=== PATIENT | female | born 1945 | race Caucasian/White ===

== ENCOUNTER 2018-03-11 23:43 | Inpatient (IN) | END 2018-03-13 16:59 | disposition home or self-care (01) | DRG 512 ==

== ENCOUNTER 2018-09-14 17:51 | Observation (INO) | payer OTHER ==
[~2018-09-14] VITALS: Ht 152.4 cm; Wt 49.0 kg
[~2018-09-14 17:51] MED LIST: HYDR-3601 PO
[2018-09-14] MEDS ORDERED: SOD CHLORIDE 0.9% 1,000 ML IV STA (19:25)
[2018-09-15] VITALS (8 sets, daily range): BP systolic 120–165; BP diastolic 72–87; PULSE 81–95; RESP 16; Ht 152.4 cm; Wt 49.0 kg
--- NOTE | 2018-09-15 02:22 | ERD ---
ER Documentation Chief Complaint Chief Complaint pt is bib friend with c/o shaking and "seeing things that aren't there" " HPI Is a 73-year-old female brought in by her friend with complaints of tremulousness and double vision that started approximately 16-18 hours ago upon waking. Apparently she had one episode of this last year but did not seek medical attention. Since arrival, her double vision is completely normalized however she maintains her tremulousness and generalized ataxia. She is unable to walk more than 2 steps without stumbling. She denied any dysarthria, slurred speech, difficulty word finding, loss of motor strength ROS All systems reviewed and are negative except as per history of present illness. Medications Home Meds Active Scripts Hydrocodone Bit-Acetaminophen (Hydrocodone Bit-APAP) 5-325MG Tablet, 2 TAB PO Q6H PRN for PAIN, #60 TAB Prov:Fatoumata HAREMarthaNATE Cici 03/13/18 Allergies Allergies: Coded Allergies: No Known Allergy (Unverified , 11/05/15) PMhx/Soc History of Surgery: Yes (LEFT ELBOW ) Anesthesia Reaction: No Hx Neurological Disorder: No Hx Respiratory Disorders: No Hx Cardiac Disorders: Yes (HYPERLIPIDEMIA ) Hx Psychiatric Problems: No Hx Miscellaneous Medical Probl: No Hx Alcohol Use: Yes (DAILY ) Hx Substance Use: No Hx Tobacco Use: No Smoking Status: Never smoker Physical Exam Vitals Vital Signs Date Temp Pulse Resp B/P (MAP) Pulse Ox O2 O2 Flow FiO2 Time Delivery Rate 09/15/18 78 16 153/74 95 Room Air 01:29 (100) 09/14/18 86 16 152/91 95 Room Air 23:01 (111) 09/14/18 84 16 159/92 95 Room Air 22:15 (114) 09/14/18 98.1 91 16 171/91 96 Room Air 20:24 (117) 09/14/18 98.9 72 18 186/97 98 17:57 (126) Physical Exam Const: No acute distress Head: Atraumatic Eyes: Normal Conjunctiva ENT: Normal External Ears, Nose and Mouth. Neck: Full range of motion. No meningismus. Resp: Clear to auscultation bilaterally Cardio: Regular rate and rhythm, no murmurs Abd: Soft, non tender, non distended. Normal bowel sounds Skin: No petechiae or rashes Back: No midline or flank tenderness Ext: No cyanosis, or edema Neur: Awake and alert Psych: Normal Mood and Affect Result Diagram: 09/14/18200909/14/182010 Results 24 hrs Laboratory Tests Test 09/14/18 20:10 09/14/18 20:11 09/14/18 20:18 09/15/18 00:35 White Blood Count 5.5 10^3/ul Red Blood Count 4.22 10^6/ul Hemoglobin 13.5 g/dl Hematocrit 39.4 % Mean Corpuscular 93.4 fl Volume Mean Corpuscular 32.0 pg Hemoglobin Mean Corpuscular 34.3 g/dl Hemoglobin Concent Red Cell 12.3 % Distribution Width Platelet Count 297 10^3/UL Mean Platelet 8.3 fl Volume Immature 0.400 % Granulocytes % Neutrophils % 69.4 % Lymphocytes % 20.0 % Monocytes % 9.2 % Eosinophils % 0.4 % Basophils % 0.6 % Nucleated Red 0.0 /100WBC Blood Cells % Immature 0.020 10^3/ul Granulocytes # Neutrophils # 3.8 10^3/ul Lymphocytes # 1.1 10^3/ul Monocytes # 0.5 10^3/ul Eosinophils # 0.0 10^3/ul Basophils # 0.0 10^3/ul Nucleated Red 0.0 10^3/ul Blood Cells # Prothrombin Time 11.8 Sec Prothrombin Time 0.9 Ratio INR International 0.86 Normalized Ratio Activated 24.[address] Time Sodium Level 140 mmol/L Potassium Level 3.9 mmol/L Chloride Level 95 mmol/L Carbon Dioxide 26 mmol/L Level Anion Gap 19 Blood Urea 17 mg/dl Nitrogen Creatinine 0.71 mg/dl Est Glomerular mL/min Filtrat Rate mL/min Glucose Level 104 mg/dl Calcium Level 10.1 mg/dl Total Bilirubin 0.4 mg/dl Direct Bilirubin 0.00 mg/dl Indirect Bilirubin 0.4 mg/dl Aspartate Amino 24 IU/L Transf (AST/SGOT) Alanine 27 IU/L Aminotransferase ( ALT/SGPT) Alkaline 82 IU/L Phosphatase Creatine Kinase 29 IU/L Creatine Kinase 1.0 Index Creatinine Kinase 0.28 ng/ml MB (Mass) Troponin I < 0.012 ng/ml Total Protein 7.9 g/dl Albumin 5.0 g/dl Globulin 2.90 g/dl Albumin/Globulin 1.72 Ratio POC Venous Lactate 1.2 mmol/L Lactic Acid Level 0.9 mmol/L Current Medications Medications Dose Sig/Donn Start Time Status Last (Trade) Ordered Route PRN Stop Time Admin Dose Reason Admin Sodium 1,000 ml @ Q1H STAT 09/14/18 DC 09/14/18 Chloride 1,000 mls/hr IV 19:25 20:23 09/14/18 20:24 IV Flush 3 ml PER 09/15/18 (NS 3 ml) PROTOCOL IV 02:30 Ondansetron 4 mg Q6H PRN 09/15/18 HCl (Zofran IV 02:30 Inj) NAUSEA/VOMITI NG Aspirin 81 mg DAILY PO 09/15/18 (Aspirin) 09:00 650 mg Q6H PRN 09/15/18 Acetaminophen PO .PAIN 1-3 02:30 (Tylenol OR TEMP Tab) 1 tab Q6H PRN 09/15/18 Acetaminophen PO .PAIN 4-6 02:30 / Hydrocodone Bitart ([place] (5/325)) 2 tab Q6H PRN 09/15/18 Acetaminophen PO .PAIN 02:30 / 7-10 Hydrocodone Bitart ([place] (5/325)) Docusate 100 mg Q12H PRN 09/15/18 Sodium PO 02:30 (Colace) .CONSTIPATION Magnesium 30 ml DAILY PRN 09/15/18 Hydroxide PO 02:30 (Milk Of Mag) .CONSTIPATION Bisacodyl 10 mg DAILY PRN 09/15/18 (Dulcolax CA 02:30 Supp) .CONSTIPATION Famotidine 20 mg Q12 PO 09/15/18 (Pepcid) 09:00 Amlodipine 5 mg DAILY PO 09/15/18 Besylate 09:00 (Norvasc) Hydralazine 10 mg Q8H PRN 09/15/18 HCl IV ELEVATED 02:30 (Apresoline) BLOOD PRESSURE Procedures/MDM EKG: Rate/Rhythm: [Normal Sinus Rhythm] QRS, ST, T-waves: [No changes consistent w/ acute ischemia] Impression: [No evidence of ischemia or arrhythmia] Chest X-ray 1V Interpreted by me: Soft Tissue: No acute abnormalities Bones: No acute abnormalities Mediastinum/Cardiac Silhouette/Lungs: [No acute abnormalities] Medical decision making: This very pleasant patient comes in with generalized ataxia. Her physical exam shows no neurological findings other than the tremulousness in her hands. She has normal cerebellar function on heel to toe and finger to nose testing. She has no dysarthria or slurred speech or facial drooping. She is alert and oriented x4. I do feel the patient is to be admitted for further evaluation and management. I spoken to , who is on-call who agrees with my assessment is calyx of the patient to her service. Departure Diagnosis: Primary Impression: Blurring of visual image Condition: Serious DONALDO JOHNSON Sep 15, 2018 02:22
[2018-09-15] MEDS ORDERED: DOCUSATE SODIUM 100 MG CAP PO PRN (02:30)
[2018-09-15] MEDS ORDERED: BISACODYL 10 MG SUPP PR PRN (02:30)
[2018-09-15] MEDS ORDERED: MAGNESIUM HYDROXIDE 30ML CUP PO PRN (02:30)
[2018-09-15] MEDS ORDERED: HYDROCODONE/APAP (5/325) TAB PO PRN ×2 (02:30)
[2018-09-15] MEDS ORDERED: hydrALAzine 20 MG INJ IV PRN (02:30)
[2018-09-15] MEDS ORDERED: NACL 0.9% 3 ML SYG IV SCH (02:30)
[2018-09-15] MEDS ORDERED: ACETAMINOPHEN 325 MG TAB PO PRN (02:30)
[2018-09-15] MEDS ORDERED: ONDANSETRON 4 MG INJ IV PRN (02:30)
[2018-09-15] MEDS ORDERED: ASPIRIN 81 MG TAB PO SCH (09:00)
[2018-09-15] MEDS ORDERED: FAMOTIDINE 20 MG TAB PO SCH (09:00)
[2018-09-15] MEDS ORDERED: AMLODIPINE 5 MG TAB PO SCH (09:00)
[2018-09-15] MEDS ORDERED: ASPI-831 PO (09:05)
[2018-09-15] MEDS ORDERED: AMLO-145 PO (09:05)
--- NOTE | 2018-09-15 09:06 | PDOCDIS ---
Discharge Instructions CONDITION [id number] Patient Condition: [id number] Good HOME CARE INSTRUCTIONS: [id number] Diet Instructions: [id number] y FOLLOW UP/APPOINTMENTS Follow-up Plan pcp 1 week ROSA MAN MD Sep 15, 2018 09:06
--- NOTE | 2018-09-15 10:22 | HP ---
DATE OF ADMISSION: 09/15/2018 CHIEF COMPLAINT: Double vision and unsteady gait. HISTORY OF PRESENT ILLNESS: A 73-year-old female with unremarkable past medical history, presented t o Emergency Room with complaint of double vision all day, as well as tremulousness. The symptoms [place] throughout the day. By the time she arrived to the Emergency Room her double vision was complete ly resolved. However, she remained somewhat unsteady with generalized ataxia. The patient denies an y focal weakness or numbness. No dysarthria or aphasia. No further visual changes. She reports fee ling better since admission. Patient was able to ambulate in the morning of admission. She denies a ny symptoms of vertigo. The patient was noted to be hypertensive and started on Norvasc. PAST MEDICAL HISTORY: Unremarkable. MEDICATIONS PRIOR TO ADMISSION: Edwards as needed. SOCIAL HISTORY: The patient denies tobacco or alcohol use. PHYSICAL EXAMINATION: GENERAL: Well-developed, well-nourished elderly female who is in no apparent distress. VITAL SIGNS: Stable. She is afebrile. HEENT: Extraocular muscles intact. Pupils equal and reactive to light bilaterally. Sclerae are ani cteric. Oropharynx is clear and moist. NECK: Supple, no JVD, no carotid bruits. LUNGS: Clear to auscultation bilaterally. CARDIAC: Regular rate and rhythm. No murmurs or gallops. ABDOMEN: Soft, nontender, nondistended, normoactive bowel sounds. EXTREMITIES: No clubbing, cyanosis, or edema. NEUROLOGICAL: Cranial nerves II through XII are intact. Motor and sensory are intact in all extremi ties. The patient has mild noticeable tremor. LABORATORY DATA: Normal. CAT scan of the brain was unremarkable. ASSESSMENT: 1. A 73-year-old female presenting with transient diplopia and ataxia. The symptoms have resolved s benny admission. 2. Newly diagnosed hypertension, started on Norvasc. PLAN: Place in tele observation, proceed with MRI of brain. DISCHARGE PLANNING: If MRI is unremarkable: 1. Consider baby aspirin in case symptoms re-present. 2. Transient ischemic attack. 3. Continue Norvasc. Dictated By: ROSA STRONG/QUETA Conf#: [id number] DID#: [id number] CC: EMIGDIO HARE MD;*End*
== END 2018-09-15 16:45 | disposition home or self-care (01) ==
LOC: E/R 17:51 → 6WM 09-15 01:12
PROVIDERS: ADMIT Internal Medicine; ATTEND Internal Medicine
DX: H53.2 Diplopia (principal); R27.0 Ataxia, unspecified; E78.5 Hyperlipidemia, unspecified; I10 Essential (primary) hypertension
CPT/HCPCS: 70450; 70551; 71045; 80048; 80053; 80061; 82550; 82553; 83036; 83605; 83735; 84484; 85025; 85610; 85730; 87400; 93005; 93880; 97161; 99285; G0378; J0360; J7030

== ENCOUNTER 2018-11-05 13:19 | Emergency (ER) | payer OTHER ==
[~2018-11-05] VITALS: Ht 152.4 cm; Wt 48.3 kg
[~2018-11-05 13:19] MED LIST changes: +AMLO-145 PO; +ASPI-831 PO
[2018-11-05 13:25] VITALS: BP 127/73; PULSE 81; RESP 19; Ht 152.4 cm; Wt 48.3 kg
[2018-11-05] MEDS ORDERED: IBUPROFEN 200 MG TAB PO ONE (14:30)
[2018-11-05] MEDS ORDERED: TRAM50TA2 PO (15:57)
--- NOTE | 2018-11-05 16:04 | ERD ---
ER Documentation Chief Complaint Chief Complaint left hand pain/injury due to fall HPI 73-year-old female presents with left hand pain and deformity after falling and tripping today. She denies any headache, head injury, neck pain, weakness, deficits. Denies any chest pain or shortness of breath. She has bruising and deformity of her left second through fifth digit ROS All systems reviewed and are negative except as per history of present illness. Medications Home Meds Active Scripts Tramadol HCl (Tramadol HCl) 50 Mg Tablet, 50 MG PO Q4 PRN for PAIN, #15 TAB Prov:SAPPHIRE HICKMAN MD 11/05/18 Amlodipine Besylate* (Amlodipine Besylate*) 5 Mg Tablet, 5 MG PO DAILY for 30 Days, TAB 3 Refills Prov:ROSA MAN MD 09/15/18 Aspirin (Aspirin) 81 Mg Chew, 81 MG PO DAILY for 30 Days, TAB 3 Refills Prov:ROSA MAN MD 09/15/18 Hydrocodone Bit-Acetaminophen (Hydrocodone Bit-APAP) 5-325MG Tablet, 2 TAB PO Q6H PRN for PAIN, #60 TAB Prov:EMIGDIO HARE 03/13/18 Allergies Allergies: Coded Allergies: No Known Allergy (Unverified , 11/05/18) PMhx/Soc History of Surgery: Yes (Left Elbow, Hysterectomy) Anesthesia Reaction: No Hx Neurological Disorder: No Hx Respiratory Disorders: No Hx Cardiac Disorders: Yes (hyperlipidemia, hypertension) Hx Psychiatric Problems: Yes (depression) Hx Miscellaneous Medical Probl: Yes (pls see EMR) Hx Alcohol Use: Yes (daily) Hx Substance Use: No Hx Tobacco Use: No Smoking Status: Never smoker FmHx Family History: No diabetes, No coronary disease, No other Physical Exam Vitals Vital Signs Date Temp Pulse Resp B/P (MAP) Pulse Ox O2 O2 Flow FiO2 Time Delivery Rate 11/05/18 98.3 81 19 127/73 99 13:25 (91) Physical Exam Const: No acute distress Head: Atraumatic Eyes: Normal Conjunctiva ENT: Normal External Ears, Nose and Mouth. Neck: Full range of motion. No meningismus. Resp: Clear to auscultation bilaterally Cardio: Regular rate and rhythm, no murmurs Abd: Soft, non tender, non distended. Normal bowel sounds Skin: No petechiae or rashes Back: No midline or flank tenderness Ext: No cyanosis, or edema. Deviation and bruising and deformity of the left second through fifth digits at the MCP joint area. Patient is able to move although restricted range of motion due to deformity. Neur: Awake and alert Psych: Normal Mood and Affect Results 24 hrs Current Medications Medications Dose Sig/Donn Start Time Status Last (Trade) Ordered Route PRN Stop Time Admin Dose Reason Admin Ibuprofen 400 mg ONCE ONCE 11/05/18 DC 11/05/18 (Motrin) PO 14:30 14:13 11/05/18 14:31 Procedures/MDM X-ray left hand 3V interpreted by me: Scaphoid: Normal Bones: Angulated fracture of the base of second through fifth proximal phalanges. No dislocation noted. Joints: No dislocation Foreign body: None. Angulated mildly displaced fractures of the proximal phalanges of the left second through fifth digits. Patient presents with left second through fifth digit fractures without evidence of ischemia, tendon deficits, signs of infection. Procedure note-via sterile technique digital blocks were performed on the second through fifth digits with approximately 8 cc of lidocaine. Incision was obtained. Retraction anatomic alignment was improved clinically. Patient was able to flex and extend at all joints affected. Reduction x-ray shows persistent angulation although improved alignment of the left second through fifth digit fractures. Patient was placed in the left second through fifth digit joseluis tape as well as left hand splint. Patient is neurovascular intact after joseluis tape and splint. Patient was given Tylenol for pain. There is no signs of ischemia, deficits or infection. She will discharged home in a splint with recommendations for orthopedic follow-up within the next week. She was advised she may need authorization from primary doctor for orthopedic evaluation but was given multiple resources nonetheless. The patient was stable with no new complaints during the ER course. Clinically, there is no current evidence to suggest meningitis, sepsis, acute abdomen, pneumonia, stroke, acute coronary syndrome, pulmonary embolism, aortic dissection or any other emergent condition appearing to require further evaluation or hospitalization. Patient counseled regarding my diagnostic impression and care plan. Prior to discharge all questions answered. Pt agrees with treatment plan and understands strict return precautions. Pt is instructed to follow up with primary care provider within 24-48 hours. Precautionary instructions provided including instructions to return to the ER if not improving or for any worsening or changing symptoms or concerns. Departure Diagnosis: Primary Impression: Fracture of finger of left hand Encounter type: initial encounter Fracture type: closed Phalanx: proximal Fracture alignment: displaced Patient Instructions: Finger and Toe Fractures (Broken Finger or Toe) Referrals: GAL SMITH MD, PAUL M MD [facility] Hours: Sat-Sat 9:00 AM - 5:00 PM Additional Instructions: There are fractures of 4 fingers of the left hand. See orthopedist or hand surgeon within the next week for further evaluation and further treatment. Recheck sooner for fevers, redness, new worsening symptoms. May need authorization from primary doctor for orthopedist visit. SAPPHIRE HICKMAN MD Nov 05, 2018 16:04
== END 2018-11-05 16:20 | disposition home or self-care (01) ==
LOC: FTE 13:19
DX: S62.611A Displaced fracture of proximal phalanx of left index finger, initial encounter for closed fracture (principal); I10 Essential (primary) hypertension; S62.617A Displaced fracture of proximal phalanx of left little finger, initial encounter for closed fracture; S62.613A Displaced fracture of proximal phalanx of left middle finger, initial encounter for closed fracture; S62.615A Displaced fracture of proximal phalanx of left ring finger, initial encounter for closed fracture; W01.0XXA Fall on same level from slipping, tripping and stumbling without subsequent striking against object, initial encounter; Y92.9 Unspecified place or not applicable